=== PATIENT | male | born 1975 | race African-American/Black ===

== ENCOUNTER 2017-12-12 06:57 | Emergency (ER) | payer OTHER ==
[~2017-12-12] VITALS: Ht 185.4 cm; Wt 141.7 kg
[2017-12-12 07:17] VITALS: BP 156/98; Ht 185.4 cm; Wt 141.7 kg
== END 2017-12-12 10:05 | disposition home or self-care (01) ==
LOC: ED 06:57
DX: M54.5 Low back pain (principal)